=== PATIENT | male | born 1950 | race Caucasian/White ===

== ENCOUNTER → 2019-09-06 | Outpatient (CLI) | payer BC ==
--- NOTE | 2019-09-06 10:37 | XR ---
EXAMINATION TYPE: XR cervical spine comp DATE OF EXAM: 09/06/2019 COMPARISON: None HISTORY: Cervicalgia TECHNIQUE: Five-view cervical spine FINDINGS: Prevertebral space is normal. Anterior vertebral body spurring is present C3-C6. Some poste rior endplate spurring may be present C5-6. Posterior spinal lamellar line is intact. There is modera te right foraminal narrowing at C5-6. IMPRESSION: 1. Right foraminal stenosis C5-6. This could be further evaluated with MRI.
== END | disposition home or self-care (01) ==
LOC: RADXRMAIN 09:49
PROVIDERS: ATTEND Internal Medicine Geriatric Medicine
DX: M48.02 Spinal stenosis, cervical region (principal)
CPT/HCPCS: 72050